=== PATIENT | female | born 1940 | race Caucasian/White ===

== ENCOUNTER → 2023-05-27 13:52 | Outpatient (REF) | payer MEDICARE, OTHER, SELFPAY | LOC: RAD 13:52 | PROVIDERS: ATTENDING PHYSICIAN Internal Medicine; FAMILY PHYSICIAN Student in an Organized Health Care Education/Training Program | DX: R60.0 Localized edema (principal) | CPT/HCPCS: 93971 ==

== ENCOUNTER → 2023-08-24 11:01 | Outpatient (REF) | payer MEDICARE, OTHER, SELFPAY | LOC: HWRCS 11:01 | PROVIDERS: ATTENDING PHYSICIAN Internal Medicine; FAMILY PHYSICIAN Student in an Organized Health Care Education/Training Program | DX: I25.10 Atherosclerotic heart disease of native coronary artery without angina pectoris (principal); I42.8 Other cardiomyopathies; I35.1 Nonrheumatic aortic (valve) insufficiency; R06.09 Other forms of dyspnea | CPT/HCPCS: 93306 ==

== ENCOUNTER → 2024-01-17 09:57 | Outpatient (REF) | payer MEDICARE, OTHER, SELFPAY ==
[2024-01-17 10:42] LABS: % Eosinophils 4.4 % (0-6); % Lymphocytes 31.5 % (20.5-51.1); % Monocytes 11.4 % (1.7-9.3); % Neutrophils 51.7 % (42.2-75.2); Absolute Eosinophils 0.2 10^3/uL (0-0.7); Absolute Lymphocytes 1.3 10^3/uL (1.2-3.4); Absolute Monocytes 0.5 10^3/uL (0.1-0.6); Absolute Neutrophils 2.1 10^3/uL (1.4-6.5); Hematocrit 40.2 % (37.0-47.0); Hemoglobin 13.3 g/dL (12.0-16.0); Mean Corp Hgb Conc. 33.1 g/dL (33.0-37.0); Mean Corpuscular Hgb 28.1 pg (27.0-31.0); Mean Corpuscular Volume 84.8 fL (81.0-99.0); Mean Platelet Volume 10.3 fL (7.4-10.4); Nucleated Red Blood Cells % 0 %; Platelet Count 131 10^3/uL (130-400); Red Blood Cell Count 4.74 10^6/uL (4.20-5.40); Red Cell Dist. Width 13.5 % (11.5-14.5); White Blood Cell Count 4.1 10^3/uL (4.8-10.8)
[2024-01-17 10:59] LABS: ALT (SGPT) 32 U/L (0-35); AST (SGOT) 43 U/L (14-36); Albumin 4.8 g/dl (3.5-5.0); Alkaline Phosphatase 47 U/L (38-126); Blood Urea Nitrogen 24 mg/dl (7-17); Calcium 10.2 mg/dl (8.4-10.2); Carbon Dioxide 28 mmol/L (22-30); Chloride 101 mmol/L (98-107); Glucose 93 mg/dl (70-99); HDL Cholesterol 90 mg/dl; LDL Cholesterol, Calculated 48 mg/dl; Potassium 4.7 mmol/L (3.5-5.1); Sodium 140 mmol/L (135-145); Total Bilirubin 1.7 mg/dl (0.2-1.3); Total Cholesterol 154 mg/dl (50-199); Total Protein 7.3 g/dl (6.3-8.2); Triglyceride 83 mg/dl (10-149); Very Low Density Lipoprotein 16 mg/dl (0-30); eGFR > 60.00
[2024-01-17 11:15] LABS: Vitamin D, 25-OH*** 93.3 ng/mL (30-80)
[2024-01-17 11:38] LABS: TSH 2.17 uIU/ml (0.47-4.68)
[2024-01-17 11:48] LABS: Vitamin B12 967 pg/ml (239-931)
== END ==
LOC: REG 09:57
PROVIDERS: ATTENDING PHYSICIAN Internal Medicine; FAMILY PHYSICIAN Student in an Organized Health Care Education/Training Program
DX: E78.00 Pure hypercholesterolemia, unspecified (principal); I10 Essential (primary) hypertension; I25.10 Atherosclerotic heart disease of native coronary artery without angina pectoris; E53.8 Deficiency of other specified B group vitamins; E55.9 Vitamin D deficiency, unspecified
CPT/HCPCS: 36415; 80053; 80061; 82306; 82607; 84443; 85025

== ENCOUNTER → 2024-07-31 07:03 | Outpatient (REF) | payer MEDICARE, OTHER, SELFPAY | LOC: RCS 07:03 | PROVIDERS: ATTENDING PHYSICIAN Nurse Practitioner; FAMILY PHYSICIAN Student in an Organized Health Care Education/Training Program | DX: R06.02 Shortness of breath (principal) | CPT/HCPCS: 93306 ==

== ENCOUNTER → 2024-08-03 09:19 | Outpatient (REF) | payer MEDICARE, OTHER, SELFPAY ==
[2024-08-03 09:51] LABS: % Lymphocytes 33.6 % (20.5-51.1); % Monocytes 12.4 % (1.7-9.3); Absolute Eosinophils 0.2 10^3/uL (0-0.7); Absolute Lymphocytes 1.4 10^3/uL (1.2-3.4); Absolute Monocytes 0.5 10^3/uL (0.1-0.6); Absolute Neutrophils 2.1 10^3/uL (1.4-6.5); Hematocrit 40.8 % (37.0-47.0); Hemoglobin 13.2 g/dL (12.0-16.0); Mean Corp Hgb Conc. 32.4 g/dL (33.0-37.0); Mean Corpuscular Hgb 28.1 pg (27.0-31.0); Mean Corpuscular Volume 86.8 fL (81.0-99.0); Mean Platelet Volume 9.7 fL (7.4-10.4); Nucleated Red Blood Cells % 0 %; Platelet Count 133 10^3/uL (130-400); Red Cell Dist. Width 13.8 % (11.5-14.5); White Blood Cell Count 4.2 10^3/uL (4.8-10.8)
[2024-08-03 10:26] LABS: ALT (SGPT) 31 U/L (0-35); AST (SGOT) 35 U/L (14-36); Albumin 4.8 g/dl (3.5-5.0); Alkaline Phosphatase 57 U/L (38-126); Blood Urea Nitrogen 35 mg/dl (7-17); Calcium 10.3 mg/dl (8.4-10.2); Carbon Dioxide 28 mmol/L (22-30); Chloride 107 mmol/L (98-107); Glucose 99 mg/dl (70-99); HDL Cholesterol 72 mg/dl; LDL Cholesterol, Calculated 66 mg/dl; Potassium 4.8 mmol/L (3.5-5.1); Sodium 141 mmol/L (135-145); Total Cholesterol 154 mg/dl (50-199); Total Protein 7.3 g/dl (6.3-8.2); Triglyceride 83 mg/dl (10-149); Very Low Density Lipoprotein 16 mg/dl (0-30); eGFR > 60.00
== END ==
LOC: REG 09:19
PROVIDERS: ATTENDING PHYSICIAN Internal Medicine; FAMILY PHYSICIAN Student in an Organized Health Care Education/Training Program
DX: R06.09 Other forms of dyspnea (principal); I25.10 Atherosclerotic heart disease of native coronary artery without angina pectoris; I10 Essential (primary) hypertension
CPT/HCPCS: 36415; 80053; 80061; 85025

== ENCOUNTER 2024-08-07 06:47 | Day surgery (SDC) | payer MEDICARE, OTHER, SELFPAY ==
[2024-08-07] VITALS (14 sets, daily range): BP systolic 118–157; BP diastolic 61–80; BMI 26.9
[2024-08-07 08:40] LABS: ACT-LR - POC 227 Seconds (116-155)
--- NOTE | 2024-08-07 09:15 | ITS.CL.CATH ---
Route Service Manager - Catheterization
Cardiac Catheterization
Procedure Report:
CARDIAC CATHETERIZATION REPORT
Date of Procedure: 08/07/2024
Referring: Danyn Ceja M.D., Ph.D.
Indication: Dyspnea on exertion, known coronary artery disease
PROCEDURE:
1. Right heart catheterization.
2. Coronary angiography.
3. Left heart catheterization.
4. Successful IFR of the ostial LAD.
A total of 25 minutes of procedural/moderate sedation was utilized. An independent medical collections specialist was present to assist with and help manage the patient's level of consciousness and physiologic status.
ACCESS:
1. 6 [place] right radial artery using a modified Seldinger technique.
2. 6 [place] right common femoral vein using modified Seldinger technique with a micropuncture kit under ultrasound guidance.
CATHETERS:
1. 5 [place] balloon with.
2. 5 [place] JR4.
3. 5 [place] JL 3.5.
4. 6 [place] JL 3.5 guiding catheter.
HEMODYNAMIC DATA
Weight (kg): 56.4
AO (s/d/x, mmHg): 111/63/84
LV (s/x, mmHg): 114/15
PCWP (a/v/x, mmHg): 17/
PA (s/d/x, mmHg): 36//
RV (s/x, mmHg): 36/11
RA (a/v/x, mmHg): 14/
SVC SvO2 (%): 63.7
IVC SvO2 (%): Not obtained.
RA SvO2 (%): Not obtained.
RV SvO2 (%): Not obtained.
PA SvO2 (%): 64.6
SaO2 (%): 93.2
Hbg (g/dL): 12.1
[place]
CO (L/min): 2.99
CI (L/min/m2): 2.03
Thermodilution
CO (L/min): Not performed.
CI (L/min/m2): Not performed.
TPG (mmHg): 11
PVR (Sanchez Units): 3.68
SVR (dynes*seconds*cm^-5): 2221
AVO2 Diff (Volume %): 4.71
AV gradient (x, mmHg): None.
AV area (cm2): Normal.
MV gradient (x, mmHg): Not obtained.
MV area (cm2): Not obtained.
LEFT VENTRICULOGRAPHY: Not performed.
AORTOGRAPHY: Not performed.
CORONARY ANGIOGRAPHY
Dominance: Left.
Left Main: Short, essentially cloacal, bifurcating vessel. There is no coronary artery disease.
LAD: Normal size vessel giving rise to 2 diagonals. There is a 40-50% lesion in the ostium of the LAD. The previously described 50% mid vessel lesion is not visualized. There is sluggish flow throughout the entire left coronary tree.
Ramus: Congenitally absent.
Circumflex: Large size, dominant vessel giving rise to 2 obtuse marginals before terminating as a left posterior descending artery. There is no coronary artery disease.
RCA: Small size, nondominant vessel. There is no coronary artery disease.
INTERVENTIONS
1. Successful IFR of the 40-50% ostial LAD lesion, demonstrating nonocclusive disease (IFR = 0.96).
2. Intracoronary nitroglycerin 150 mcg.
Narrative:
The decision was made to perform physiologic testing. The diagnostic catheter was removed over a wire and exchanged for a(n) 6 [place]ese JL 3.5 guiding catheter. The guiding catheter was advanced into the ascending aorta and seated in the left main
coronary artery. Additional heparin was given to obtain an ACT greater than 250 seconds. An iFR wire was zeroed outside of the body, then inserted into the guiding sheath. The wire was advanced and the transducer was normalized just outside of the
guiding catheter tip. The wire was advanced into the mid LAD. Three iFR measurements were taken. The lesion was determined to be nonocclusive (0.96).
Angiography showed that the coronary flow was generally sluggish and spite of the absence of epicardial coronary artery disease. Nitroglycerin 150 mcg was given intracoronary. Repeat injection showed a significant improvement in the flow of the
contrast through the coronary arteries, suggesting a degree of endothelial dysfunction and microvascular disease.
Closure Device: Vascular band for the right radial artery, manual pressure for the right femoral vein
Radiation dose (mGy): 207.62
DAP (cm2.Gy): 13.6339
Fluoroscopy time (minutes): 6.4
CONCLUSIONS:
1. Left dominant circulation with a nonocclusive 40-50% lesion in the ostium of the LAD (IFR = 0.96) and generally sluggish flow that improved with nitroglycerin, suggestive of endothelial dysfunction.
2. Mildly elevated filling pressures (LVEDP = 15 mmHg, PCWP = 15 mmHg at 56.4 kg).
3. Mild, combined precapillary/postcapillary pulmonary hypertension (mean PA = 26 mmHg, PCWP = 15 mmHg, cardiac output = 2.99 L/min, PVR = 3.68 Sanchez units).
RECOMMENDATIONS:
1. Expectant management after cardiac catheterization via right radial/right common femoral approach.
2. Limited weight bearing on the right wrist for one week.
3. Continue aggressive primary prevention with high-dose, high potency statin. Goal LDL <55.
4. The patient reports prior intolerance of long-acting nitrates. Start amlodipine 5 mg daily for potential endothelial dysfunction.
5. Continue other GDMT/OMT including metoprolol and irbesartan.
6. Stable for outpatient follow-up.
7. If the patient's symptoms were to persist, consider primary pulmonary testing.
Copy to: Danny Ceja M.D., Ph.D., Nicole Montes M.D.
Yair Dugan, DO, FACC, FACP
[2024-08-07] MEDS: TYLENOL 650 MG PO (11:32)
== END 2024-08-07 16:57 | disposition home or self-care (01) ==
LOC: CATH 06:47
PROVIDERS: ATTENDING PHYSICIAN Internal Medicine Cardiovascular Disease; FAMILY PHYSICIAN Student in an Organized Health Care Education/Training Program; OTHER PHYSICIAN Internal Medicine
DX: I25.10 Atherosclerotic heart disease of native coronary artery without angina pectoris (principal); R06.09 Other forms of dyspnea; I27.29 Other secondary pulmonary hypertension; I42.8 Other cardiomyopathies; Z79.82 Long term (current) use of aspirin; Z79.899 Other long term (current) drug therapy; I11.0 Hypertensive heart disease with heart failure
CPT/HCPCS: 99152; 99153; 93799; 85347; 93460; C1769; C1894; Q9967

== ENCOUNTER → 2024-08-30 08:54 | Outpatient (REF) | payer MEDICARE, OTHER, SELFPAY | LOC: HWRAD 08:54 | PROVIDERS: ATTENDING PHYSICIAN Internal Medicine; FAMILY PHYSICIAN Student in an Organized Health Care Education/Training Program | DX: R06.09 Other forms of dyspnea (principal) | CPT/HCPCS: 71250 ==

== ENCOUNTER → 2024-11-01 11:12 | Outpatient (REF) | payer MEDICARE, OTHER, SELFPAY ==
[2024-11-01 12:38] LABS: ALT (SGPT) 29 U/L (0-35); AST (SGOT) 37 U/L (14-36); Albumin 4.7 g/dl (3.5-5.0); Alkaline Phosphatase 52 U/L (38-126); Blood Urea Nitrogen 37 mg/dl (7-17); Calcium 10.4 mg/dl (8.4-10.2); Carbon Dioxide 33 mmol/L (22-30); Chloride 101 mmol/L (98-107); Glucose 92 mg/dl (70-99); Potassium 4.7 mmol/L (3.5-5.1); Sodium 138 mmol/L (135-145); Total Protein 7.0 g/dl (6.3-8.2); eGFR > 60.00
== END ==
LOC: REG 11:12
PROVIDERS: ATTENDING PHYSICIAN Physician Assistant; FAMILY PHYSICIAN Student in an Organized Health Care Education/Training Program
DX: Z01.812 Encounter for preprocedural laboratory examination (principal)
CPT/HCPCS: 36415; 80053

== ENCOUNTER → 2024-11-03 12:47 | Outpatient (REF) | payer MEDICARE, OTHER, SELFPAY | LOC: RAD 12:47 | PROVIDERS: ATTENDING PHYSICIAN Physician Assistant; FAMILY PHYSICIAN Student in an Organized Health Care Education/Training Program | DX: R93.2 Abnormal findings on diagnostic imaging of liver and biliary tract (principal) | CPT/HCPCS: 74170; Q9967 ==

== ENCOUNTER → 2025-01-22 09:39 | Outpatient (REF) | payer MEDICARE, OTHER, SELFPAY | LOC: HWRAD 09:39 | PROVIDERS: ATTENDING PHYSICIAN Physician Assistant; FAMILY PHYSICIAN Student in an Organized Health Care Education/Training Program | DX: N95.1 Menopausal and female climacteric states (principal); M81.0 Age-related osteoporosis without current pathological fracture | CPT/HCPCS: 77080 ==

== ENCOUNTER → 2025-02-12 10:14 | Outpatient (REF) | payer MEDICARE, OTHER, SELFPAY ==
[2025-02-12 12:37] LABS: ALT (SGPT) 39 U/L (0-35); AST (SGOT) 43 U/L (14-36); HDL Cholesterol 75 mg/dl; LDL Cholesterol, Calculated 42 mg/dl; Very Low Density Lipoprotein 19 mg/dl (0-30)
== END ==
LOC: REG 10:14
PROVIDERS: ATTENDING PHYSICIAN Internal Medicine; FAMILY PHYSICIAN Student in an Organized Health Care Education/Training Program
DX: I25.10 Atherosclerotic heart disease of native coronary artery without angina pectoris (principal); I50.9 Heart failure, unspecified
CPT/HCPCS: 36415; 80061; 84450; 84460